=== PATIENT | male | born 1980 ===

== ENCOUNTER 2019-06-21 05:33 | Day surgery (SDC) | payer OTHER ==
[2019-06-21] VITALS (9 sets, daily range): BP systolic 91–128; BP diastolic 48–75
[~2019-06-21] VITALS: Ht 181.6 cm; Wt 78.0 kg
[~2019-06-21 05:33] MED LIST: FISH OIL CAP1000 MG ORAL; GINKGO BILOBA120 M1 PO; LEXAPRO20 MG ORAL
[2019-06-21] MEDS ORDERED: oxyCONTIN 20mg tab ORAL ONE (06:00)
[2019-06-21] MEDS ORDERED: ceFAZolin 1gm IVPB IVPB ONE ×2 (06:00)
[2019-06-21] MEDS ORDERED: celeBREX 200mg Cap **SURGERY PATIENTS ONLY ORAL ONE (06:00)
[2019-06-21] MEDS ORDERED: Kenalog-40 1ml Vial ONE (07:35)
[2019-06-21] MEDS ORDERED: Lidocaine 1% 10mg/ml/Epi 0.005mg/ml 30ml vial INJ ONE (07:35)
[2019-06-21] MEDS ORDERED: Duramorph PF 5mg/10ml amp ONE (07:35)
[2019-06-21] MEDS ORDERED: Ketorolac 30mg Inj ONE (07:35)
[2019-06-21] MEDS ORDERED: Bupivacaine 0.25% Inj 30ml INJ ONE (07:35)
[2019-06-21] MEDS ORDERED: Bupivacaine w/Epi 0.5% 30ml Vial INJ ONE (07:36)
[2019-06-21] MEDS ORDERED: NS Irrig 4000ml IRRIG ONE (08:00)
[2019-06-21] MEDS ORDERED: LR 1000ml ONE (08:00)
[2019-06-21] MEDS ORDERED: LR 1000ml 1,000 ML IVLG SCH (08:06)
--- NOTE | 2019-06-21 08:09 | Anethesia Preoperative Eval ---
Anesthesia Pre-op PMH/ROS General Date of Evaluation: Jun 21, 2019 Time of Evaluation: 08:01 Anesthesiologist: Ekta ASA Score: ASA 1 Mallampati Score Class I : Soft palate, uvula, fauces, pillars visible Class II: Soft palate, uvula, fauces visible Class III: Soft palate, base of uvula visible Class IV: Only hard plate visible Mallampati Classification: Class I Surgeon: Urban Diagnosis: L Knee Pain Surgical Procedure: L Knee Arthroscopy Anesthesia History: none Family History: no anesthesia problems Allergies: Coded Allergies: Coffee (Verified Allergy, Intermediate, 06/20/19) MIGRAINES Medications: see eMAR Patient NPO?: Yes Past Medical History Neurologic/Psychiatric: Reports: depression/anxiety Anesthesia Pre-op Phys. Exam Physician Exam Last Vital Signs Date Time Temp Pulse Resp B/P (MAP) Pulse Ox O2 Delivery O2 Flow Rate FiO2 06/21/19 06:12 Room Air 06/21/19 06:11 97.3 57 20 128/75 97 Constitutional: NAD Neurologic: CN 2-12 intact Cardiovascular: RRR Respiratory: CTA Gastrointestinal: S/NT/ND Airway Exam Mallampati Score: Class I MO: full ROM: full Teeth: intact Anesthesia Pre-op A/P Risk Assessment & Plan Assessment: ASA 1 Plan: GA, SED Status Change Before Surgery: No Pre-Antibiotics Dru Gram Ancef IV Given Within 1 Hr of Incision: Yes Time Given: 08:16 Tamir Dash MD Jun 21, 2019 08:09
--- NOTE | 2019-06-21 08:11 | 48 Hour Post Anesthesia Eval ---
Post Anesthesia Evaluation Procedure: L Knee Arthroscopy Date of Evaluation: Jun 21, 2019 Time of Evaluation: 11:23 Blood Pressure Systolic: 118 0: 73 Pulse Rate: 67 Respiratory Rate: 18 Temperature (Fahrenheit): 98.2 O2 Sat by Pulse Oximetry: 100 Airway: patent Nausea: No Vomiting: No Pain Intensity: 2 Hydration Status: adequate Cardiopulmonary Status: Stable Mental Status/LOC: patient returned to baseline Follow-up Care/Observations: 0 Post-Anesthesia Complications: 0 Follow-up care needed: ready to discharge Tamri Dash MD Jun 21, 2019 08:11
--- NOTE | 2019-06-21 08:11 | Immediate Post-Op Evaluation ---
Immediate Post-Op Evalulation Immediate Post-Op Evalulation Procedure: L Knee Arthroscopy Date of Evaluation: Jun 21, 2019 Time of Evaluation: 09:17 IV Fluids: 500 LR Blood Products: 0 Estimated Blood Loss: 10 Urinary Output: 0 Blood Pressure Systolic: 98 Blood Pressure Diastolic: 54 Pulse Rate: 57 Respiratory Rate: 16 O2 Sat by Pulse Oximetry: 100 Temperature (Fahrenheit): 97 Pain Score (1-10): 2 Nausea: No Vomiting: No Complications 0 Patient Status: awake, reacts, patent, none Hydration Status: adequate Dru Gram Ancef IV Given Within 1 Hr of Incision: Yes Time Given: 08:16 Tamir Dash MD Jun 21, 2019 08:11
[2019-06-21] MEDS ORDERED: Lidocaine 1% MPF 10mg/ml 5ml ONE (08:13)
[2019-06-21] MEDS ORDERED: Dexamethasone 4mg/ml vial ONE (08:13)
[2019-06-21] MEDS ORDERED: Sodium Chloride 10ml vial INJ ONE (08:13)
--- NOTE | 2019-06-21 08:13 | Pre-Procedure Note/Attestation ---
Pre-Procedure Note/Attestation Complete Prior to Procedure Planned Procedure: left Procedure Narrative: knee internal diagnostic arthroscopy, possible menisectomy, possible chondroplasty Indications for Procedure Pre-Operative Diagnosis: left knee internal derangment Attestation I attest that I discussed the nature of the procedure; its benefits; risks and complications; and alternatives (and the risks and benefits of such alternatives ), prior to the procedure, with the patient (or the patient's legal small business representative). I attest that, if there was a reasonable possibility of needing a blood transfusion, the patient (or the patient's legal small business representative) was given the [facility] standardized written summary, pursuant to the [place] Blood Safety Act ([place] Health and Safety Code # 1645, as amended). I attest that I re-evaluated the patient just prior to the surgery and that there has been no change in the patient's H&P, except as documented below: Jeffrey Urban MD Jun 21, 2019 08:13
[2019-06-21] MEDS ORDERED: Ketamine 500mg Inj ONE (08:14)
--- NOTE | 2019-06-21 08:14 | Operative Note - PDOC ---
Operative Note Operative Note Pre-op Diagnosis: left knee internal derangment Procedure: see op report Post-op Diagnosis: same as pre-op plus Operative Findings: consistent w/pre-op dx studies Anesthesia: MAC Specimen: none Complications: none Condition: stable Estimated Blood Loss: none Implant(s) used?: No Jeffrey Urban MD Jun 21, 2019 08:14
[2019-06-21] MEDS ORDERED: Atropine Sulfate 0.4mg/ml inj IVP PRN (08:15)
[2019-06-21] MEDS ORDERED: LORazepam Inj 2mg/ml 1ml IV PRN (08:15)
[2019-06-21] MEDS ORDERED: Tylenol #3 tab (300mg/30mg) ORAL PRN (08:15)
[2019-06-21] MEDS ORDERED: Metoclopramide 10mg/2ml Inj IVP PRN (08:15)
[2019-06-21] MEDS ORDERED: HYDROmorphone 1mg/ml Carpuject SUBQ PRN (08:15)
[2019-06-21] MEDS ORDERED: HYDROcodone/Acetamin 5/325 tab ORAL PRN ×2 (08:15)
[2019-06-21] MEDS ORDERED: HYDROcodone/Acetamin 7.5/325 tab ORAL PRN (08:15)
[2019-06-21] MEDS ORDERED: Midazolam 2mg/2ml Inj IVP PRN (08:15)
[2019-06-21] MEDS ORDERED: DiphenhydrAMINE 50mg/ml Inj IVP PRN (08:15)
[2019-06-21] MEDS ORDERED: oxyCODONE HCL/Acetaminophen 5/325mg ORAL PRN (08:15)
[2019-06-21] MEDS ORDERED: D5 1/2NS 1,000 ML IV SCH (08:15)
[2019-06-21] MEDS ORDERED: Meperidine 50mg/ml Inj(FOR RIGORS ONLY) IVP PRN (08:15)
[2019-06-21] MEDS ORDERED: Hydromorphone 0.5mg/0.5ml inj IVP PRN (08:15)
[2019-06-21] MEDS ORDERED: fentaNYL 100 mcg/2 mL IV PRN (08:15)
[2019-06-21] MEDS ORDERED: Acetaminophen (Non formulary) 100 ML IV ONE (08:15)
[2019-06-21] MEDS ORDERED: Labetalol 5mg/ml 20ml vial IV PRN (08:15)
[2019-06-21] MEDS ORDERED: Ketorolac 30mg Inj IV PRN ×2 (08:15)
[2019-06-21] MEDS ORDERED: Duramorph PF 5mg/10ml amp IV ONE (08:36)
--- NOTE | 2019-06-21 16:00 | Operative Note - Dictated ---
DATE OF OPERATION: 06/21/2019 PREOPERATIVE DIAGNOSES: 1. Left knee internal derangement. 2. Left knee instability. 3. 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 POSTOPERATIVE DIAGNOSES: 1. Right knee hypertrophic fat pad of medial patellofemoral compartment. 2. Partial lateral meniscus tear. PROCEDURES: 1. Left knee diagnostic arthroscopy and synovectomy of medial patellofemoral compartment. 2. Revision of partial lateral meniscectomy. SURGEON: Jeffrey Urban M.D. ANESTHESIA: General. INDICATION FOR PROCEDURE: The patient is a pleasant gentleman, who has underwent a left knee arthroscopy and partial lateral meniscectomy of discoid meniscus tear. The patient continued to have instability and pain mostly along the medial side. His MRI was inconclusive, but he has continued instability and elected to undergo diagnostic arthroscopy, possible meniscectomy, synovectomy, and chondroplasty based on intraoperative findings. Risks, limitations, expectations, and complications of the procedure were discussed in detail. All questions addressed. DESCRIPTION OF PROCEDURE: After informed consent was obtained, the patient was brought to the operating room. The patient was placed under general anesthesia. The right and left leg was prepped and draped in a sterile manner. Time-out was performed. The previous skin incision was marked out. Inferolateral stab incision was then made. Trocar was introduced into the patellofemoral compartment. There is hypertrophic fat pad in the patellofemoral compartment. Medial compartment was entered. Medial working was established. The medial meniscus from the posterior horn middle body and anterior horn was probed and noted to be intact. No significant chondral damage in the medial femoral condyle. There is grade 2 chondral damage of tibial plateau. Shaver was then used to perform synovectomy of the synovial tissue and the hypertrophic fat pad in the anterior compartment. This was extended into the intercondylar notch and the lateral compartment. The ACL was probed and noted to be intact. Lateral compartment was entered. There was some tear of the middle body of the lateral meniscus. Partial meniscectomy using a shaver was performed. Once that was completed, the camera was placed in the patellofemoral compartment and excision of the fat pad was completed. The instruments were removed. Portal sites were closed using 3-0 Monocryl sutures. Steri-Strips and a sterile dressing were applied. ESTIMATED BLOOD LOSS: None. COMPLICATIONS: None. SPECIMENS: None. Jfefrey Urban M.D. DR: SUKUMAR JOB#: [id number] CC:
== END 2019-06-21 10:45 | disposition home or self-care (01) ==
LOC: SUR 05:33
DX: S83.281A Other tear of lateral meniscus, current injury, right knee, initial encounter (principal); M79.4 Hypertrophy of (infrapatellar) fat pad; X58.XXXA Exposure to other specified factors, initial encounter; Y92.9 Unspecified place or not applicable; F32.9 Major depressive disorder, single episode, unspecified; F41.9 Anxiety disorder, unspecified; Z91.048 Other nonmedicinal substance allergy status
CPT/HCPCS: 29876; 29881; J0690; J1100; J1885; J2250; J2405; J3010; J3301; J3490; 94003; 94150